=== PATIENT | male | born 1960 | race Caucasian/White ===

== ENCOUNTER 2019-03-31 07:58 | Inpatient (IN) | payer MEDICARE ==
[2019-03-17 12:59] LABS: BASOPHILS # (AUTO) 0.1 (0.0-0.1); EOSINOPHILS # (AUTO) 0.2 (0.0-0.4); EOSINOPHILS % 3.3 % (0.0-6.0); HEMATOCRIT 37.9 % (38.2-49.6); HEMOGLOBIN 12.9 g/dL (14.0-18.0); LYMPHOCYTES # (AUTO) 1.4 (1.0-3.2); LYMPHOCYTES % 20.1 % (18.0-39.1); MEAN CORPUSCULAR HEMOGLOBIN 31.1 pg (28-32); MEAN CORPUSCULAR VOLUME 91.3 fL (81-99); MONOCYTES # (AUTO) 0.7 (0.2-0.8); MONOCYTES % 9.7 % (4.4-11.3); NEUTROPHILS # (AUTO) 4.4 (2.1-6.9); NEUTROPHILS % 65.5 % (38.7-80.0); PLATELET COUNT 157 x10e3/uL (140-360); RED BLOOD COUNT 4.15 x10e6/uL (4.3-5.7)
[2019-03-17 13:16] LABS: ANION GAP 12.8 mmol/L (8-16); BLOOD UREA NITROGEN 10 mg/dL (7-26); BUN/CREATININE RATIO 12 (6-25); CALCIUM 8.7 mg/dL (8.4-10.2); CARBON DIOXIDE 25 mmol/L (22-29); CHLORIDE 103 mmol/L (98-107); CREATININE, SERUM 0.85 mg/dL (0.72-1.25); EST GLOMERULAR FILTRATION RATE > 60 ML/MIN (60-); GLUCOSE 154 mg/dL (74-118); POTASSIUM 3.8 mmol/L (3.5-5.1); SODIUM 137 mmol/L (136-145)
--- NOTE | 2019-03-17 13:50 | Diagnostic Imaging Report ---
EXAMINATION: CHEST 2 VIEWS INDICATION: Pre-operative COMPARISON: None FINDINGS: LINES/TUBES:None LUNGS:The lungs are well-inflated. No focal consolidation or pulmonary edema. PLEURA:No pleural effusion or pneumothorax. MEDIASTINUM:The cardiomediastinal silhouette appears normal in size and shape. BONES/SOFT TISSUES:No acute osseous injury. ABDOMEN:No free air under the diaphragm. IMPRESSION: No focal pneumonia or pulmonary edema. Signed by: Laila Petty MD on 03/17/2019 1:46 PM
[~2019-03-31] VITALS: Ht 180.3 cm; Wt 160.6 kg
[~2019-03-31 07:58] MED LIST: AMLODIPINE BESY10 MG PO; BACTRIM DS TAB1 EACH PO; BENAZEPRIL-HCT1 EAC3 PO; BENICAR20 MG PO; CEPHALEXIN500 MG PO; ELIQUIS5 MG PO; FIORICET; FUROSEMIDE40 MG PO; GABAPENTIN100 MG PO; ISOSORBIDE MONO20 MG PO; KEFLEX500 MG PO; LABETALOL HCL300 MG; LINZESS; METFORMIN HCL500 MG PO; METHOCARBAMOL750 MG PO; MS CONTIN15 MG PO; OMEPRAZOLE40 MG PO; RANEXA500 MG PO; SAVAYSA PO; SULFAMETHOXAZO1 EAC1 PO; TIZANIDINE HCL4 M1 PO; ULTRAM50 MG PO; Z.0.ALLOPURINOL300 M PO; Z.0.ATENOLOL100 MG PO; Z.0.CATAPRES0.3 MG PO; Z.0.COLCRYS0.6 MG PO; Z.0.DIOVAN160 MG PO; Z.0.LASIX40 MG PO; Z.5.AMLODIPINE-BEN1 PO
--- OUTSIDE RECORDS SUMMARY | 2019-03-31 08:10 | XMS REPORT ---
Author Author [facility] Address Unknown Phone Unavailable Care Team Providers Care Quirk Sander Name Role Phone Susie AGUAYO Unavailable Unavailable Problems This patient has no known problems. Allergies, Adverse Reactions, Alerts This patient has no known allergies or adverse reactions. Medications This patient has no known medications. Results Test Description Test Time Test Comments Text Results Atomic Results Result Comments CHEST 2 VIEWS 2019-03-17 13:45:00 [facility] [address] [address] Patient Name: DARIA RICHARDS MR #: [id number] : 1960 Age/Sex: 58/M Req #: [id number] Adm Physician: Ordered by: LILLI AGUAYO MD Report #: [id number] Location: OR Room/Bed: Procedure: [id number] DX/CHEST 2 VIEWS Exam Date: Exam Time: REPORT STATUS: Signed EXAMINATION: CHEST 2 VIEWS INDICATION: Pre-operative COMPARISON: None FINDINGS: LINES/TUBES:None LUNGS:The lungs are well- inflated. No focal consolidation or pulmonary edema. PLEURA:No pleural effusion or pneumothorax. MEDIASTINUM:The cardiomediastinal silhouette appears normal in size and shape. BONES/SOFT TISSUES:No acute osseous injury. ABDOMEN:No free air under the diaphragm. IMPRESSION: No focal pneumonia or pulmonary edema. Signed by: Nico Lynn MD on 03/17/2019 1:46 PM Dictated By: NICO LYNN MD 134 Transcribed By: TAMIE on 03/17/191345 COPY TO: LILLI AGUAYO MD
[2019-03-31] MEDS ORDERED: CEFAZOLIN SOD 1 GM/NS 50ML 100 ML IV ONE (08:36)
[2019-03-31] MEDS ORDERED: MORPHINE SULFATE 2 MG/ML SYR 1ML IV PRN (11:30)
[2019-03-31] MEDS ORDERED: ONDANSETRON HCL INJ 2MG/ML 2ML 2 MG/ML VIAL IV PRN (11:30)
[2019-03-31] MEDS ORDERED: SCOPOLAMINE 1.5 MG PATCH TOP SCH (11:30)
[2019-03-31] MEDS ORDERED: BUPIVACAINE 0.25% 30ML SDV INJ ONE (11:50)
[2019-03-31] MEDS ORDERED: ACETAMINOPHEN 1000 MG/100 ML 100 ML IV ONE (12:28)
[2019-03-31] MEDS ORDERED: SUGAMMADEX SODIUM 200 MG/2 ML VIAL IV ONE (12:29)
[2019-03-31] MEDS ORDERED: METOCLOPRAMIDE HCL 10 MG/2ML VIAL ONE (13:28)
[2019-03-31] MEDS ORDERED: ONDANSETRON HCL INJ 2MG/ML 2ML 2 MG/ML VIAL ONE ×2 (13:28→17:42)
--- NOTE | 2019-03-31 13:38 | Operative Report ---
DATE OF PROCEDURE: 03/31/2019 SURGEON: Myles Alvarez MD PREOPERATIVE DIAGNOSES: 1. Morbid obesity, BMI of 58. 2. Type 2 diabetes mellitus. 3. Hypertension. 4. Atrial fibrillation, on Eliquis. 5. Hiatal hernia. POSTOPERATIVE DIAGNOSES: 1. Morbid obesity, BMI of 58. 2. Type 2 diabetes mellitus. 3. Hypertension. 4. Atrial fibrillation, on Eliquis. 5. Hiatal hernia. PREOPERATIVE INDICATION: 1. Treat disease, prevent complications related to comorbid conditions of obesity. 2. Prevent complications related to hiatal hernia. PROCEDURES: 1. Laparoscopic vertical sleeve gastrectomy. 2. Laparoscopic hiatal hernia repair. ANESTHESIA: General. CAREER AND GUIDANCE COUNSELOR: Davidson Elias rn medical surgical (needed due to complexity of case). FLUIDS: 500 mL of crystalloid. ESTIMATED BLOOD LOSS: 20 mL. DRAINS: None. COMPLICATIONS: None. SPECIMENS: Partial stomach. GRAFTS: None. FINDINGS: 1. Hiatal hernia. 2. Negative intraoperative EGD leak test. PROCEDURE IN DETAIL: The patient was brought to the operating room and was intubated under general endotracheal anesthesia. He was sterilely prepped and draped in the usual fashion. A preprocedure pause was performed identifying the patient, use of perioperative antibiotics, intended procedure, and staff surgeon. Access was gained via a 5 mm left subcostal incision using a Veress needle. Abdomen was insufflated. Four additional trocars were placed in the standard positions. A liver retractor was used to expose the stomach. The gastrohepatic ligament was divided with [place] LigaSure device and the hiatal hernia was exposed by dissecting out the right and left terry of the diaphragm. Hernia was reduced, it was repaired with 2-0 Surgidac suture in an interrupted fashion. Next, the greater curvature of the stomach was mobilized via the [place] LigaSure device from 4 cm proximal to the pyloric valve to the left terry of the diaphragm. I then inserted an adult-sized endoscope along the lesser curve of the stomach. The greater curvature of stomach was resected with multiple firings of Endo-DOMINGO 60 mm purple load stapling device, which was reinforced with SeamGuard. We conducted intraoperative EGD leak test, no leaks were identified. The specimen was removed through the right periumbilical port site. The port site was closed with 0 Vicryl suture using a Tyrese Ed technique. We then verified hemostasis, removed the liver retractor and desufflated the abdomen. The trocars were removed. Incision sites were closed with 4-0 Monocryl suture in a subcuticular fashion. Dermabond dressings were applied. A 0.25% bupivacaine was used both at the preperitoneal incision sites. The patient tolerated the procedure well. Type of wound was type 2, clean, contaminated. All surgical sponge and instrument counts were correct. MD PALOMO Gonzales/THAD /[id number]
[2019-03-31] MEDS ORDERED: FENTANYL CITRATE/PF 100MCG/2 ML INJ ONE ×2 (13:42→17:48)
--- NOTE | 2019-03-31 13:55 | NUR ---
RECEIVED REPORT FROM TRAM IN PACU AWAITING FOR PT TO ARRIVE TO FLOOR
--- NOTE | 2019-03-31 14:01 | NUR ---
RECEIVED PT TO FLOOR AA0X2/3 DROWSY FROM ANESTHESIA. REPORTING SEVERE PAIN 10/10 PRN MORPHINE WILL BE GIVEN V.T STABLE PT ON 2L TOLERATING WELL PT HAS HX OF SLEEP APNEA. WILL BE BRINGING MACHINE TO HOSPITAL RIGHT HAND IV ACCESS PATENT WITH LR RUNNING 5 TROCHAR SITES WITH DERMA MEDEROS ,CLEAN AND DRY WILL CONTINUE TO MONITOR PT CLOSELY SIDE RAILSX2, BED WHEELS LOCKED, CALL LIGHT IS WITHIN EASY REACH INSTRUCTED TO CALL FOR ASSISTANCE IF NEEDED
[2019-03-31 14:19] VITALS: BP 120/79
[2019-03-31 14:23] VITALS: BP 120/79
[2019-03-31 14:24] VITALS: BP 120/79
[2019-03-31] MEDS: LACTATED RINGER'S 1,000 ML IV SCH ×2 (14:44→19:30)
[2019-03-31] MEDS: HYDROMORPHONE 1MG/1ML INJ IV PRN ×3 (16:13→23:35)
[2019-03-31] MEDS: ONDANSETRON HCL INJ 2MG/ML 2ML 2 MG/ML VIAL IV PRN ×2 (16:13→20:20)
--- NOTE | 2019-03-31 17:29 | NUR ---
PT REFUSIONG SEDS AT THIS TIME INFORMED PT ABOUT THE IMPORTANCE OF DVT PREVENTION PT REFUSES THEM ON AFTER TEACHING
[2019-03-31] MEDS ORDERED: SEVOFLURANE INHAL SOLN 250 ML PEN BTL ONE (17:42)
[2019-03-31] MEDS ORDERED: ACETAMINOPHEN 1000 MG/100 ML IV ONE (17:42)
[2019-03-31] MEDS ORDERED: PROPOFOL IV EMULSION 10 MG/ML 20 ML VIAL ONE (17:42)
[2019-03-31] MEDS ORDERED: LIDOCAINE HCL 2% LOCAL INJ 5 ML SDV VIAL INJ ONE (17:42)
[2019-03-31] MEDS ORDERED: DEXAMETHASONE SOD PHOS INJ 4 MG/ML VIAL ONE (17:42)
[2019-03-31] MEDS ORDERED: DEXTROSE 50% SYRINGE 50 ML IV PRN (17:45)
[2019-03-31] MEDS ORDERED: MIDAZOLAM HCL 2 MG/2 ML VIAL ONE (17:48)
--- NOTE | 2019-03-31 18:44 | NUR ---
PT VOIDED 3 TIMES AFTER SX INTO URINAL
--- NOTE | 2019-03-31 19:30 | Consultation ---
DATE OF CONSULTATION: REASON FOR CONSULTATION: "I had weight loss surgery today." HISTORY OF PRESENT ILLNESS: This is a 58-year-old white man, who was admitted to [facility] today with diagnosis of extreme obesity, BMI 49, that was complicating his underlying hypertension, diastolic heart failure, and sleep apnea. Today, the patient underwent successful laparoscopic sleeve gastrectomy that was performed by Dr. Myles Alvarez. He also underwent laparoscopic hiatal hernia repair. During this surgical procedure, the patient states he is having considerable amount of abdominal pain, but did respond to intravenous hydromorphone. The patient states that a year ago he underwent left heart catheterization and no percutaneous coronary intervention was warranted. REVIEW OF SYSTEMS: GENERAL: Weight is stable. No fever or chills. HEENT: No headaches. No visual changes. CARDIOVASCULAR: No chest pain. RESPIRATORY: No cough. He does use a CPAP machine for sleep apnea. He also has diastolic heart failure. GI: No nausea or vomiting. He does complain abdominal pain. : No UTI symptoms. Cowan catheter has been removed. NEUROMUSCULAR: No limb weakness or numbness. PAST MEDICAL HISTORY: 1. Hyperuricemia (history of gout). 2. Hypertensive heart disease. 3. Chronic diastolic congestive heart failure. 4. Extreme obesity, BMI 49. 5. Chronic atrial fibrillation. 6. Type 2 diabetes mellitus. 7. Chronic back pain secondary to lumbar disk disease. 8. GERD. SURGICAL HISTORY: 1. Left heart catheterization in 2018, which did not require percutaneous coronary intervention according to the patient. 2. Right axilla abscess incision and drainage. 3. Left carpal tunnel surgery. 4. Laparoscopic sleeve gastrectomy with hiatal hernia repair today. ALLERGIES: CODEINE. FAMILY HISTORY: Multiple family members with hypertension, type 2 diabetes mellitus. SOCIAL HISTORY: This man is . He lives with his . He is retired. No history of tobacco or alcohol use. MEDICATIONS: 1. Allopurinol 300 mg daily. 2. Amlodipine 10 mg daily. 3. Eliquis 5 mg b.i.d. 4. Clonidine 0.3 mg b.i.d. 5. Colchicine 0.6 mg once daily. 6. Furosemide 40 mg b.i.d. 7. Gabapentin 100 mg once daily. 8. Isosorbide mononitrate 30 mg daily. 9. Labetalol 300 mg once daily. 10. Metformin 500 mg b.i.d. 11. Morphine sulfate extended release 15 mg b.i.d. 12. Olmesartan 40 mg daily. 13. Omeprazole 40 mg daily. 14. Tizanidine 4 mg once daily as needed for back spasms. PHYSICAL EXAMINATION: GENERAL: He is somnolent, but arousable. He is currently wearing a CPAP mask. His is at bedside. VITAL SIGNS: Height 5 feet 11 inches, weighs 350 pounds, BMI 49. Blood pressure is 120/80, pulse is 54, respiratory rate 16, oxygen saturation is 94% on 2 L of oxygen, and temperature 96.4. INTEGUMENT: Skin is warm and dry. No pallor, jaundice, or diaphoresis. HEENT: Anicteric sclerae with moist mucous membranes. NECK: Supple. No evidence of jugular venous distention. CARDIOVASCULAR: Distant heart sounds. Regular rate with irregular rhythm. LUNGS: No rales, no rhonchi, no wheezes. ABDOMEN: Obese. He has a large pendulous abdominal pannus. Laparoscopic incisions are clean, dry, and intact. EXTREMITIES: The patient has 1 to 2+ edema in the bilateral lower legs. NEUROLOGIC: Intact. DIAGNOSES: 1. Status post laparoscopic sleeve gastrectomy with hiatal hernia repair. 2. Extreme obesity, BMI 49, complicated underlying hypertension, type 2 diabetes mellitus with sleep apnea. 3. Hypertensive heart disease. 4. Chronic diastolic congestive heart failure. 5. Type 2 diabetes mellitus. PLAN: 1. Blood pressure monitoring control. 2. Blood glucose monitoring control. 3. Restart oral apixaban in the form of Eliquis tomorrow since the patient has history of atrial fibrillation. 4. Mobilize the patient. 5. Encourage incentive spirometer usage to help prevent atelectasis. 6. We will resume the patient's home medications. I spent 40 minutes in care of the patient. I would also like to thank Dr. Hollis for involving me in the care of this patient. MD NORBERTO Zavala/THAD /[id number] MTDD
[2019-03-31 19:59] VITALS: BP 136/76
[2019-03-31 20:15] VITALS: BP 136/76
[2019-03-31] MEDS: INSULIN LISPRO 100 UNIT/1 ML 3ML VIAL SQ SCH (21:10)
[2019-03-31] MEDS: ENOXAPARIN SOD INJ 40 MG/0.4 ML SYR SC SCH (21:27)
--- NOTE | 2019-03-31 21:45 | NUR ---
Assessment done.no resp.distress. 5 trochar sites to abdomen dry.voided in urinal.uses spirometer.encouraged to ambulates .pt stated that "feels dizzy" .so pt refused.iv fluid infusing to right hand.using cpap.bed locked and in lowest position.phone and call light within reach.instructed to call for assistance as needed.
[2019-03-31 23:58] VITALS: BP 156/77
[2019-04-01] MEDS: ONDANSETRON HCL INJ 2MG/ML 2ML 2 MG/ML VIAL IV PRN ×2 (00:10→06:18)
--- NOTE | 2019-04-01 01:02 | NUR ---
Ambulates in the room.voided.no passes gas .
[2019-04-01] MEDS: LACTATED RINGER'S 1,000 ML IV SCH (03:48)
[2019-04-01 04:00] VITALS: BP 150/90
[2019-04-01 05:40] LABS: ALANINE AMINOTRANSFERASE 109 IU/L (0-55); ALBUMIN 3.8 g/dL (3.5-5.0); ALKALINE PHOSPHATASE 75 IU/L (40-150); ANION GAP 13.8 mmol/L (8-16); BLOOD UREA NITROGEN 17 mg/dL (7-26); BUN/CREATININE RATIO 16 (6-25); CALCIUM 9.4 mg/dL (8.4-10.2); CARBON DIOXIDE 25 mmol/L (22-29); CHLORIDE 102 mmol/L (98-107); CREATININE, SERUM 1.06 mg/dL (0.72-1.25); EST GLOMERULAR FILTRATION RATE > 60 ML/MIN (60-); GLUCOSE 184 mg/dL (74-118); MAGNESIUM 1.8 MG/DL (1.3-2.1); PHOSPHORUS 2.6 MG/DL (2.3-4.7); POTASSIUM 3.8 mmol/L (3.5-5.1); SODIUM 137 mmol/L (136-145)
--- NOTE | 2019-04-01 06:00 | NUR ---
Ambulates in the [address].back to bed safely.stable condition.
[2019-04-01] MEDS: HYDROMORPHONE 1MG/1ML INJ IV PRN (06:20)
[2019-04-01 06:40] LABS: BASOPHILS % 0.1 % (0.0-1.0); HEMATOCRIT 39.3 % (38.2-49.6); HEMOGLOBIN 13.2 g/dL (14.0-18.0); LYMPHOCYTES # (AUTO) 0.8 (1.0-3.2); LYMPHOCYTES % 7.8 % (18.0-39.1); MEAN CORPUSCULAR HEMOGLOBIN 30.5 pg (28-32); MEAN CORPUSCULAR HGB CONC 33.6 g/dL (31-35); MEAN CORPUSCULAR VOLUME 90.8 fL (81-99); MONOCYTES # (AUTO) 0.8 (0.2-0.8); MONOCYTES % 7.2 % (4.4-11.3); NEUTROPHILS # (AUTO) 8.8 (2.1-6.9); NEUTROPHILS % 84.4 % (38.7-80.0); PLATELET COUNT 198 x10e3/uL (140-360); RED BLOOD COUNT 4.33 x10e6/uL (4.3-5.7); RED CELL DISTRIBUTION WIDTH 14.2 % (11.7-14.4)
--- NOTE | 2019-04-01 07:00 | NUR ---
Bed side shift report given to the oncoming Rn.stable condition.
[2019-04-01] MEDS: INSULIN LISPRO 100 UNIT/1 ML 3ML VIAL SQ SCH ×2 (07:30→11:30)
[2019-04-01] MEDS ORDERED: HYDROCODONE/APAP 7.5MG-325MG 1 EA TAB PO PRN (07:30)
[2019-04-01 07:44] VITALS: BP 193/93
[2019-04-01 08:01] VITALS: BP 193/93
[2019-04-01] MEDS: ENOXAPARIN SOD INJ 40 MG/0.4 ML SYR SC SCH (08:02)
--- NOTE | 2019-04-01 08:05 | NUR ---
Progress note: S: No major complaints O: AF, VSS Gen- no distress Abd- soft, incisions c/d/i A/P: POD 1, s/p lap sleeve gastrectomy with hiatal hernia repair -Clears, ambulate, IS, OOB to chair -DC Home -Diet instructions given
--- NOTE | 2019-04-01 08:12 | Discharge Summary ---
ADMITTING DIAGNOSES: 1. Extreme obesity, BMI 49, complicating underlying hypertension, sleep apnea, and heart failure. 2. Hypertensive heart disease. 3. Chronic diastolic congestive heart failure. 4. Type 2 diabetes mellitus. 5. Obstructive sleep apnea. DISCHARGE DIAGNOSES: 1. Status post laparoscopic sleeve gastrectomy with hiatal hernia repair. 2. Extreme obesity, BMI 49, complicating underlying hypertension, diastolic heart failure, and sleep apnea. 3. Chronic diastolic congestive heart failure. 4. Hypertensive heart disease. 5. Obstructive sleep apnea. 6. Type 2 diabetes mellitus. 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 During this hospitalization, he underwent successful laparoscopic vertical sleeve gastrectomy with hiatal hernia repair. The surgery was performed by Dr. Myles Alvarez. His hospitalization was unremarkable. His postoperative blood work was remained within normal limits. On discharge, the patient was tolerating bariatric clear liquid diet. CONDITION ON DISCHARGE: Stable. DISCHARGE MEDICATIONS: 1. Tramadol 50 mg one every 4 hours p.r.n. breakthrough pain, 30 prescribed, no refills. 2. Ondansetron 4 mg one every 6 hours p.r.n. nausea, vomiting, 20 prescribed, no refills. 3. Allopurinol 300 mg daily. 4. Amlodipine 10 mg daily. 5. Eliquis 5 mg b.i.d. (the patient will start this on Sunday, April 02, 2019). 6. Clonidine 0.3 mg b.i.d. 7. Colchicine 0.6 mg daily. 8. Furosemide 40 mg b.i.d. 9. Gabapentin 100 mg once daily as needed for neuropathic pain. 10. Isosorbide mononitrate 30 mg daily. 11. Labetalol 300 mg b.i.d. 12. Metformin 500 mg b.i.d. 13. Morphine sulfate extended release 15 mg b.i.d. 14. Olmesartan 40 mg daily. 15. Omeprazole 40 mg daily. 16. Tizanidine 4 mg daily as needed for back spasms. FOLLOWUP INSTRUCTIONS: The patient instructed to follow up with Dr. Myles Alvarez within 1 week and with his primary care physician namely Dr. Jerome Clay in 2 weeks. MD NORBERTO Zavala/THAD /[id number] cc: MD Jerome Gonzales, MTDD
[2019-04-01] MEDS ORDERED: CLONIDINE HCL 0.3 MG TAB PO SCH (09:00)
[2019-04-01] MEDS ORDERED: ISOSORBIDE MONONITRATE 20 MG TAB PO SCH (09:00)
[2019-04-01] MEDS ORDERED: AMLODIPINE BESYLATE 10 MG TAB PO SCH (09:00)
[2019-04-01] MEDS ORDERED: TIZANIDINE HCL 4 MG TAB PO SCH ×2 (09:00→12:00)
[2019-04-01] MEDS ORDERED: PANTOPRAZOLE SOD 40 MG TABEC PO SCH (09:00)
[2019-04-01] MEDS ORDERED: OLMESARTAN 20 MG TAB PO SCH ×2 (09:00→21:00)
[2019-04-01 09:30] VITALS: BP 133/93
[2019-04-01] MEDS ORDERED: ULTRAM50 MG PO (11:28)
[2019-04-01] MEDS ORDERED: ZOFRAN4 MG PO (11:28)
--- NOTE | 2019-04-01 11:34 | NUR ---
Nutrition Screen Note RD Recommendation for Physician: - ADAT to full liquids per MD Plan of Care: RD following, monitoring for tolerance and adequacy Nutrition reason for involvement: MD Consult- post op diet education Primary Diagnose(s): gastric sleeve PMH: morbid obesity, CHF, HTN, DM2 Ht: 71 in Wt: 354 lb BMI: 49.4 kg/m2 IBW: [address] Assessment: (04/01) 58 YOM admitted for gastric sleeve surgery, seen today per MD consult for diet education. Pt receptive to diet education at time of visit. Pt reports being followed by RD prior to surgery, familiar with diet progression, and has protein supplements and MVI at home. All questions and concerns addressed at time of visit. Chart reviewed. Labs and meds reviewed. Current Diet: bariatric CL diet Malnutrition Evaluation (04/01/19) The patient does not meet criteria for a specified degree of malnutrition at this time. Will re-evaluate at follow-up as appropriate. Diet Education Needs Assessment: Diet education indicated, pt receptive Learner(s): pt Barriers: none Cultural/Language Modifications: none Readiness: ready Method: handouts, discussion Topics: post op gastric bypass diet progression, supplementation Understanding/Compliance: good Diet tolerance: tolerating CL diet Nutrition Care Level: Low Signed: Clover Chang RD, LD, [facility]
[2019-04-01 12:18] VITALS: BP 135/96
--- NOTE | 2019-04-01 12:42 | NUR ---
pt tolerated diet for breakfast and lunch discharge instructions and prescriptions given iv dc pressure dressing applied and taped pt is now off unit to home
== END 2019-04-01 12:35 | disposition home or self-care (01) | DRG 620 ==
LOC: OR 07:58 → PACU V 13:28 → OBSVTOIN 13:28 → MED/SURG 14:03
PROVIDERS: ADMIT Internal Medicine; ATTEND Internal Medicine
PROC: 0BQT4ZZ Repair Diaphragm, Percutaneous Endoscopic Approach (ICD-10-PCS; principal; 2019-03-31 10:00)
PROC: 0DB64Z3 Excision of Stomach, Percutaneous Endoscopic Approach, Vertical (ICD-10-PCS; 2019-03-31 10:00)
DX: E66.01 Morbid (severe) obesity due to excess calories (principal); I50.32 Chronic diastolic (congestive) heart failure; I11.0 Hypertensive heart disease with heart failure; G47.33 Obstructive sleep apnea (adult) (pediatric); E11.9 Type 2 diabetes mellitus without complications; K44.9 Diaphragmatic hernia without obstruction or gangrene; I48.91 Unspecified atrial fibrillation; Z79.01 Long term (current) use of anticoagulants; Z68.43 Body mass index [BMI] 50.0-59.9, adult; M51.36 Other intervertebral disc degeneration, lumbar region; K21.9 Gastro-esophageal reflux disease without esophagitis
CPT/HCPCS: 36415; 43235; 71046; 80048; 80053; 82948; 83735; 84100; 85025; 88307; 93005; J0690; J1100; J1170; J1650; J2001; J2250; J2270; J2405; J2765; J3010; J7121

== ENCOUNTER → 2020-03-02 | Outpatient (CLI) | payer MEDICARE ==
[~2020-03-02] MED LIST changes: +ALLOPURINOL300 MG PO; +AMIODARONE HCL200 MG PO; +ATENOLOL50 MG PO; +BENAZEPRIL HCL10 MG PO; +GABAPENTIN800 MG PO; +MOVE IT ALONG100 MG PO; +TIZANIDINE HCL4 MG PO; +ZOFRAN4 MG PO
== END ==
LOC: RAD 10:57
PROVIDERS: ATTEND Anesthesiology
DX: M17.12 Unilateral primary osteoarthritis, left knee (principal)

== ENCOUNTER → 2020-04-06 | Day surgery (SDC) | payer MEDICARE ==
[2020-04-01 10:17] LABS: BASOPHILS # (AUTO) 0.1 (0.0-0.1); EOSINOPHILS # (AUTO) 0.2 (0.0-0.4); HEMATOCRIT 40.1 % (38.2-49.6); HEMOGLOBIN 13.5 g/dL (14.0-18.0); LYMPHOCYTES # (AUTO) 1.7 (1.0-3.2); LYMPHOCYTES % 23.9 % (18.0-39.1); MEAN CORPUSCULAR HGB CONC 33.7 g/dL (31-35); MONOCYTES # (AUTO) 0.6 (0.2-0.8); MONOCYTES % 8.5 % (4.4-11.3); NEUTROPHILS # (AUTO) 4.5 (2.1-6.9); NEUTROPHILS % 62.8 % (38.7-80.0); PLATELET COUNT 175 x10e3/uL (140-360); RED BLOOD COUNT 4.22 x10e6/uL (4.3-5.7); RED CELL DISTRIBUTION WIDTH 14.5 % (11.7-14.4)
[2020-04-01 11:01] LABS: ALANINE AMINOTRANSFERASE 22 IU/L (0-55); ALBUMIN 4.1 g/dL (3.5-5.0); ALBUMIN/GLOBULIN RATIO 1.2 (0.8-2.0); ALKALINE PHOSPHATASE 76 IU/L (40-150); ANION GAP 13.1 mmol/L (8-16); BLOOD UREA NITROGEN 17 mg/dL (7-26); BUN/CREATININE RATIO 14 (6-25); CALCIUM 9.7 mg/dL (8.4-10.2); CARBON DIOXIDE 30 mmol/L (22-29); CHLORIDE 101 mmol/L (98-107); EST GLOMERULAR FILTRATION RATE > 60 ML/MIN (60-); GLUCOSE 136 mg/dL (74-118); POTASSIUM 3.1 mmol/L (3.5-5.1); SODIUM 141 mmol/L (136-145)
--- NOTE | 2020-04-02 16:30 | NUR ---
Pt contacted by phone for interview of scheduled procedure. Review of medical history and current medications. Procedural consent on day of arrival to be completed, pre-op orders, and twice bathing education completed. All questions clarified and or answered where appropriate. pt verbalizes understanding to include day of procedure expectations and practice social distancing. Pt aware to be using provided/ personal mask for COVID-19 mitigation. Pt to bring medication list day of . - [facility]
[~2020-04-06] VITALS: Ht 180.3 cm; Wt 144.2 kg
[~2020-04-06] MED LIST changes: +ALPRAZOLAM 0.5 MG TAB ONE; +DIPHENHYDRAMINE HCL 25 MG CAP ONE; +FENTANYL CITRATE/PF 100MCG/2 ML INJ ONE; +HEPARIN SOD/SOD CHLORIDE 2,000 ML ONE; +IOPAMIDOL 370 MG/ML 200 ML INFUS..BTL INJ ONE; +LIDOCAINE HCL 2% LOCAL 20 ML VIAL ONE; +MIDAZOLAM HCL 2 MG/2 ML VIAL ONE; +SODIUM CHLORIDE 0.9% 1000ML 1,000 ML ONE; +VERAPAMIL HCL 2.5 MG/ML 2 ML VIAL ONE
[2020-04-06 12:48] VITALS: BP 119/77
[2020-04-06 13:51] VITALS: BP 130/70
--- NOTE | 2020-04-06 13:51 | NUR ---
1351p Report received from [facility] Alert oriented and appropriate, PERRLA, respirations even and unlabored to room air. Pulses x4 extremities equal and palpable . Cap fill brisk < 3 sec. + neurovascular function of right wrist/hand w/ TR Band present. No s/s of swelling or discolor at site. VS trend reviewed and medications given.TR band air release scheduled 1430pm. Skin warm and dry integrity appears intact in general. IV left hand presents healthy w/o s/s of infiltration or complaint. Abdomen soft and supple. pt offered toileting, denies need to urinate or defecate. Resting with HOB elevated aprox 30o. Personal affects with patient. Pt verbalizes understanding of POC. Educated neurological surgeon light use. bed low and locked, side rails up x2 and call light at side. pt using personal mask for COVID-19 mitigation. transfer of care -cgf
[2020-04-06 13:57] VITALS: BP 131/58
[2020-04-06 14:00] VITALS: BP 140/70
--- NOTE | 2020-04-06 14:30 | NUR ---
1430p RADIAL Compression removal: Initial Cuff volume 13 cc 1430pm -3 cc Removed No hematoma/bleeding noted with normal neurovascular function. 1445p -5cc Removed No hematoma/ bleeding noted with normal neurovascular function. 1500p-5 cc Removed No hematoma/bleeding noted with normal neurovascular function. Air removal completed. Stasis achieved sterile 2x2,Tegaderm, Coban dressing No hematoma, bleeding noted with normal neurovascular function. Pt instructed on POC. Ds/Rn
[2020-04-06 14:45] VITALS: BP 124/77
[2020-04-06 15:00] VITALS: BP 124/77
--- NOTE | 2020-04-06 15:00 | NUR ---
1500pm RT-TRBAND Pt meets discharge criteria. VS wnl, alert and oriented. Pt and Family Understands discharge instruction. Overall general assess w/o gross outliers. Skin warm, dry, and intact. Right radial dressing soft w/o s/s of hematoma. + neurovascular function of right hand present. IV removed and appears distal tip is intact, Miky staff antisubmarine officer member verifying. Pt maintains mask on for COVID 19 precautions being taken by wheel chair to awaiting car. Transfers w/o gross distress with discharge paperwork in hand.-ds/rn
--- NOTE | 2020-04-06 17:04 | Operative Report ---
DATE OF PROCEDURE: 04/06/2020 SURGEON: Josh Linn MD INDICATIONS: Coronary artery disease and abnormal stress test. PROCEDURES PERFORMED: 1. Ultrasound-guided access in the right radial artery with sheath placement. 2. Left heart catheterization, selective coronary angiography. 3. Conscious sedation, 35 minutes. 4. Deployment of right wrist TR band. COMPLICATIONS: None. RECOMMENDATIONS: Medical therapy. DESCRIPTION OF PROCEDURE: Access was obtained in the right radial artery using ultrasound guidance. A 5-Vietnamese sheath was placed. Coronary angiography demonstrated diffuse aneurysmal coronary artery disease, 4 to 8 mm coronary arteries diffusely, 30% to 50% diffuse plaques stenosis were noted. AMY 1/2 flow in all coronary vessels. No intervention deemed necessary. Right wrist TR band applied. The patient discharged home the same day. Josh Linn MD KSB/MODL /[id number]
== END | disposition home or self-care (01) ==
LOC: CATH LAB 11:54
PROVIDERS: ATTEND Internal Medicine Interventional Cardiology
DX: I25.118 Atherosclerotic heart disease of native coronary artery with other forms of angina pectoris (principal); I48.19 Other persistent atrial fibrillation; R94.39 Abnormal result of other cardiovascular function study; I10 Essential (primary) hypertension; E66.01 Morbid (severe) obesity due to excess calories; I89.0 Lymphedema, not elsewhere classified; Z88.6 Allergy status to analgesic agent; Z01.812 Encounter for preprocedural laboratory examination; Z20.828 Contact with and (suspected) exposure to other viral communicable diseases; Z79.82 Long term (current) use of aspirin; Z79.84 Long term (current) use of oral hypoglycemic drugs; Z68.41 Body mass index [BMI] 40.0-44.9, adult; Z82.49 Family history of ischemic heart disease and other diseases of the circulatory system; Z83.3 Family history of diabetes mellitus
CPT/HCPCS: 36415; 76937; 80053; 85025; 93454; C1769; C1887; J2001; J2250; J3010; J7030; Q9967; U0002; 99152

== ENCOUNTER → 2021-09-20 | Day surgery (SDC) | payer MEDICARE ==
[2021-09-15 09:09] LABS: BASOPHILS # (AUTO) 0.1 (0.0-0.1); BASOPHILS % 0.8 % (0.0-1.0); EOSINOPHILS # (AUTO) 0.1 (0.0-0.4); HEMATOCRIT 39.3 % (38.2-49.6); HEMOGLOBIN 12.6 g/dL (14.0-18.0); LYMPHOCYTES # (AUTO) 1.3 (1.0-3.2); MEAN CORPUSCULAR HEMOGLOBIN 31.6 pg (28-32); MEAN CORPUSCULAR HGB CONC 32.1 g/dL (31-35); MEAN CORPUSCULAR VOLUME 98.5 fL (81-99); MONOCYTES # (AUTO) 0.5 (0.2-0.8); NEUTROPHILS # (AUTO) 4.5 (2.1-6.9); NEUTROPHILS % 68.9 % (38.7-80.0); PLATELET COUNT 166 x10e3/uL (140-360); RED BLOOD COUNT 3.99 x10e6/uL (4.3-5.7); RED CELL DISTRIBUTION WIDTH 14.2 % (11.7-14.4)
[2021-09-15 09:32] LABS: ALBUMIN 3.7 g/dL (3.5-5.0); ALBUMIN/GLOBULIN RATIO 1.2 (0.8-2.0); ANION GAP 12.5 mmol/L (8-16); CREATININE, SERUM 1.21 mg/dL (0.72-1.25); POTASSIUM 3.5 mmol/L (3.5-5.1)
[~2021-09-20] VITALS: Ht 180.3 cm; Wt 141.1 kg
[2021-09-20] VITALS (10 sets, daily range): BP systolic 117–146; BP diastolic 82–97
[~2021-09-20] MED LIST changes: -ALPRAZOLAM 0.5 MG TAB ONE; -DIPHENHYDRAMINE HCL 25 MG CAP ONE; +IOPAMIDOL 370 MG/ML 100 ML INFUS..BTL INJ ONE; -IOPAMIDOL 370 MG/ML 200 ML INFUS..BTL INJ ONE; -LIDOCAINE HCL 2% LOCAL 20 ML VIAL ONE; +MULTI-VITAMIN1 EACH PO; -SODIUM CHLORIDE 0.9% 1000ML 1,000 ML ONE; +TAMIFLU75 MG PO
[2021-09-20] MEDS: DIPHENHYDRAMINE HCL 25 MG CAP ONE (13:42)
[2021-09-20] MEDS: ALPRAZOLAM 0.5 MG TAB ONE (13:42)
== END | disposition home or self-care (01) ==
LOC: CATH LAB 12:19
PROVIDERS: ATTEND Internal Medicine Interventional Cardiology
DX: I25.118 Atherosclerotic heart disease of native coronary artery with other forms of angina pectoris (principal); I11.0 Hypertensive heart disease with heart failure; I50.9 Heart failure, unspecified; I48.19 Other persistent atrial fibrillation; Z79.01 Long term (current) use of anticoagulants; E78.5 Hyperlipidemia, unspecified; I73.9 Peripheral vascular disease, unspecified; Z79.899 Other long term (current) drug therapy; G47.33 Obstructive sleep apnea (adult) (pediatric); E66.01 Morbid (severe) obesity due to excess calories; Z68.41 Body mass index [BMI] 40.0-44.9, adult; Z01.812 Encounter for preprocedural laboratory examination; Z11.52 Encounter for screening for COVID-19
CPT/HCPCS: 36415; 80053; 82948; 85025; 93458; 99152; C1887; C1894; J2250; J3010; Q9967; U0002

== ENCOUNTER 2021-09-22 18:00 | Emergency (ER) | payer SELFPAY ==
[~2021-09-22] VITALS: Ht 180.3 cm; Wt 141.1 kg
[~2021-09-22 18:00] MED LIST changes: -FENTANYL CITRATE/PF 100MCG/2 ML INJ ONE; -HEPARIN SOD/SOD CHLORIDE 2,000 ML ONE; -IOPAMIDOL 370 MG/ML 100 ML INFUS..BTL INJ ONE; -MIDAZOLAM HCL 2 MG/2 ML VIAL ONE; -TAMIFLU75 MG PO; -VERAPAMIL HCL 2.5 MG/ML 2 ML VIAL ONE
[2021-09-22] MEDS ORDERED: ACETAMINOPHEN 325 MG TAB PO STA (18:42)
[2021-09-22 19:26] LABS: BASOPHILS # (AUTO) 0.1 (0.0-0.1); BASOPHILS % 0.7 % (0.0-1.0); EOSINOPHILS # (AUTO) 0.1 (0.0-0.4); EOSINOPHILS % 1.3 % (0.0-6.0); HEMATOCRIT 39.8 % (38.2-49.6); LYMPHOCYTES # (AUTO) 0.5 (1.0-3.2); LYMPHOCYTES % 7.3 % (18.0-39.1); MEAN CORPUSCULAR HEMOGLOBIN 31.3 pg (28-32); MEAN CORPUSCULAR HGB CONC 32.7 g/dL (31-35); MEAN CORPUSCULAR VOLUME 95.9 fL (81-99); MONOCYTES # (AUTO) 0.9 (0.2-0.8); NEUTROPHILS # (AUTO) 5.6 (2.1-6.9); NEUTROPHILS % 78.4 % (38.7-80.0); PLATELET COUNT 141 x10e3/uL (140-360); RED BLOOD COUNT 4.15 x10e6/uL (4.3-5.7); RED CELL DISTRIBUTION WIDTH 14.6 % (11.7-14.4)
[2021-09-22 19:39] LABS: CLARITY,URINE SL CLOUDY (CLEAR); COLOR,URINE AMBER (YELLOW); KETONES,URINE NEGATIVE (NEGATIVE); LEUKOCYTE ESTERASE ,URINE NEGATIVE (NEGATIVE); NITRITE,URINE NEGATIVE (NEGATIVE); PROTEIN,URINE DIPSTICK 1+ (NEGATIVE); URINE UROBILINOGEN 1 mg/dL (0.2 - 1)
[2021-09-22 19:44] LABS: ALBUMIN 3.6 g/dL (3.5-5.0); ALBUMIN/GLOBULIN RATIO 1.1 (0.8-2.0); ANION GAP 14.1 mmol/L (8-16); CALCIUM 8.2 mg/dL (8.4-10.2); CREATININE, SERUM 1.25 mg/dL (0.72-1.25); POTASSIUM 3.1 mmol/L (3.5-5.1)
[2021-09-22 19:50] LABS: CREATINE KINASE MB 0.5 ng/mL (0-5.0)
[2021-09-22 19:53] LABS: EPITHELIAL CELLS,URINE RARE /LPF; WBC,URINE (MAN) 0-5 /HPF (0-5)
[2021-09-22] MEDS ORDERED: TAMIFLU75 MG PO (20:21)
[2021-09-22 20:49] VITALS: BP 147/88
== END 2021-09-22 20:50 | disposition home or self-care (01) ==
LOC: ER 18:19
DX: R50.9 Fever, unspecified (principal); J10.1 Influenza due to other identified influenza virus with other respiratory manifestations; R05.9 Cough, unspecified; E87.6 Hypokalemia; E11.65 Type 2 diabetes mellitus with hyperglycemia; I10 Essential (primary) hypertension; I48.91 Unspecified atrial fibrillation; E78.5 Hyperlipidemia, unspecified; K76.9 Liver disease, unspecified; M10.9 Gout, unspecified; I25.2 Old myocardial infarction; Z20.822 Contact with and (suspected) exposure to COVID-19; R94.31 Abnormal electrocardiogram [ECG] [EKG]
CPT/HCPCS: 36415; 80053; 81001; 82550; 82553; 83880; 84484; 85025; 93005; 99284; U0002

== ENCOUNTER 2022-03-28 06:51 | Emergency (ER) | payer MEDICARE ==
[~2022-03-28] VITALS: Ht 180.3 cm; Wt 141.1 kg
[~2022-03-28 06:51] MED LIST changes: +TAMIFLU75 MG PO
== END 2022-03-28 07:35 | disposition home or self-care (01) ==
LOC: ER 06:57
DX: N50.1 Vascular disorders of male genital organs (principal); I10 Essential (primary) hypertension; E11.9 Type 2 diabetes mellitus without complications; E78.5 Hyperlipidemia, unspecified; I48.91 Unspecified atrial fibrillation; I25.10 Atherosclerotic heart disease of native coronary artery without angina pectoris; K76.9 Liver disease, unspecified; M10.9 Gout, unspecified
CPT/HCPCS: 99282

== ENCOUNTER 2022-11-06 12:44 | Inpatient (IN) | payer MEDICARE ==
[~2022-11-06] VITALS: Ht 182.9 cm; Wt 138.3 kg
[2022-11-06] VITALS (18 sets, daily range): BP systolic 107–131; BP diastolic 61–92; PULSE 31–54; RESP 9–19; TEMP 97.7; O2SAT 82–100
[2022-11-06] MEDS ORDERED: DEXTROSE 50% SYRINGE 50 ML IV ONE ×2 (13:08→13:45)
[2022-11-06] MEDS ORDERED: FAMOTIDINE 20 MG/2 ML VIAL IV STA (13:39)
[2022-11-06] MEDS ORDERED: POTASSIUM CHLORIDE 10MEQ/100ML 200 ML IV ONE (14:00)
[2022-11-06 14:08] LABS: CREATINE KINASE 229 IU/L (30-200)
[2022-11-06] MEDS ORDERED: SODIUM CHLORIDE 0.9% 1000ML 1,000 ML IV SCH (14:15)
[2022-11-06 14:21] LABS: INR 1.74; PROTHROMBIN TIME 20.8 seconds (11.9-14.5)
[2022-11-06] MEDS ORDERED: POTASSIUM CHLORIDE 10MEQ/100ML 100 ML ONE ×2 (14:23→15:36)
[2022-11-06 14:30] LABS: ALBUMIN 4.3 g/dL (3.5-5.0); ALBUMIN/GLOBULIN RATIO 1.2 (0.8-2.0); ANION GAP 18.9 mmol/L (8-16); CALCIUM 9.8 mg/dL (8.4-10.2); CREATININE, SERUM 1.87 mg/dL (0.72-1.25)
[2022-11-06 14:33] LABS: POTASSIUM 2.9 mmol/L (3.5-5.1)
[2022-11-06] MEDS ORDERED: ONDANSETRON HCL INJ 2MG/ML 2ML 2 MG/ML VIAL IV PRN ×2 (14:45→17:00)
[2022-11-06] MEDS ORDERED: SODIUM CHLORIDE FLUSH 10 ML SYR INJ PRN (14:45)
[2022-11-06] MEDS ORDERED: DEXTROSE 50% SYRINGE 50 ML IV PRN ×2 (15:00→17:00)
[2022-11-06] MEDS ORDERED: CEFTRIAXONE 1 GM VIAL ONE (15:10)
[2022-11-06] MEDS ORDERED: WARFARIN SODIUM5 MG PO (16:48)
[2022-11-06] MEDS ORDERED: MORPHINE SULFAT30 M2 PO (16:51)
[2022-11-06] MEDS ORDERED: ASPIRIN81 MG PO (16:55)
[2022-11-06] MEDS ORDERED: COL-RITE250 MG PO (16:58)
[2022-11-06] MEDS ORDERED: RESTORIL15 MG PO (16:58)
[2022-11-06] MEDS ORDERED: ZOLPIDEM TARTRATE 5 MG TAB PO PRN (17:00)
[2022-11-06] MEDS ORDERED: ALLOPURINOL 300 MG TAB PO SCH (17:00)
[2022-11-06] MEDS ORDERED: HYDRALAZINE HCL 20 MG/ML VIAL IV PRN (17:00)
[2022-11-06] MEDS ORDERED: SODIUM CHLORIDE 0.9% 250ML 250 ML ONE (17:08)
[2022-11-06] MEDS: TIZANIDINE HCL 4 MG TAB PO SCH (17:49)
[2022-11-06] MEDS: INSULIN REGULAR, HUMAN 100 UNIT/1 ML SQ SCH (20:41)
[2022-11-06] MEDS ORDERED: ACETAMINOPHEN 325 MG TAB PO PRN (22:00)
[2022-11-06] MEDS: MORPHINE SULFATE ER 30 MG TAB PO SCH (22:21)
[2022-11-06] MEDS: TEMAZEPAM 15 MG CAP PO PRN (22:22)
[2022-11-07] VITALS (24 sets, daily range): BP systolic 106–155; BP diastolic 61–115; PULSE 36–69; RESP 12–19; TEMP 97.8–98.3; O2SAT 95–100
[2022-11-07 06:47] LABS: BASOPHILS # (AUTO) 0.1 (0.0-0.1); BASOPHILS % 1.2 % (0.0-1.0); EOSINOPHILS # (AUTO) 0.4 (0.0-0.4); EOSINOPHILS % 7.5 % (0.0-6.0); HEMATOCRIT 37.3 % (38.2-49.6); HEMOGLOBIN 12.3 g/dL (14.0-18.0); LYMPHOCYTES # (AUTO) 1.8 (1.0-3.2); LYMPHOCYTES % 30.9 % (18.0-39.1); MEAN CORPUSCULAR HEMOGLOBIN 32.1 pg (28-32); MEAN CORPUSCULAR VOLUME 97.4 fL (81-99); MONOCYTES # (AUTO) 0.5 (0.2-0.8); MONOCYTES % 8.1 % (4.4-11.3); NEUTROPHILS % 52.1 % (38.7-80.0); PLATELET COUNT 126 x10e3/uL (140-360); RED BLOOD COUNT 3.83 x10e6/uL (4.3-5.7); RED CELL DISTRIBUTION WIDTH 14.8 % (11.7-14.4)
[2022-11-07 06:56] LABS: INR 2.04; PROTHROMBIN TIME 23.5 seconds (11.9-14.5)
[2022-11-07 07:08] LABS: ALBUMIN 3.5 g/dL (3.5-5.0); ALBUMIN/GLOBULIN RATIO 1.3 (0.8-2.0); ANION GAP 13.9 mmol/L (8-16); CALCIUM 8.8 mg/dL (8.4-10.2); CREATININE, SERUM 1.19 mg/dL (0.72-1.25)
[2022-11-07 07:12] LABS: POTASSIUM 2.9 mmol/L (3.5-5.1)
[2022-11-07] MEDS: INSULIN REGULAR, HUMAN 100 UNIT/1 ML SQ SCH ×4 (07:30→21:00)
[2022-11-07] MEDS: MULTIVITAMINS/MINERALS TAB PO SCH (07:57)
[2022-11-07] MEDS: TIZANIDINE HCL 4 MG TAB PO SCH ×2 (07:57→17:09)
[2022-11-07] MEDS: PANTOPRAZOLE SOD 40 MG TABEC PO SCH (07:57)
[2022-11-07] MEDS: BENAZEPRIL HCL 10 MG TAB PO SCH (07:58)
[2022-11-07] MEDS: MORPHINE SULFATE ER 30 MG TAB PO SCH ×2 (07:58→22:02)
[2022-11-07] MEDS: ALLOPURINOL 300 MG TAB PO SCH (07:59)
[2022-11-07] MEDS ORDERED: POTASSIUM CHLORIDE 20 MEQ TAB CR PO ONE ×2 (08:00→17:00)
[2022-11-07] MEDS ORDERED: WARFARIN SOD 5 MG TAB PO SCH (17:00)
[2022-11-07] MEDS: TEMAZEPAM 15 MG CAP PO PRN (22:02)
[2022-11-08] VITALS (9 sets, daily range): BP systolic 127–147; BP diastolic 65–91; PULSE 39–70; RESP 12–18; TEMP 97.7; O2SAT 97–100
[2022-11-08 07:00] LABS: BASOPHILS # (AUTO) 0.1 (0.0-0.1); BASOPHILS % 0.8 % (0.0-1.0); EOSINOPHILS # (AUTO) 0.4 (0.0-0.4); EOSINOPHILS % 6.9 % (0.0-6.0); HEMATOCRIT 39.4 % (38.2-49.6); HEMOGLOBIN 13.4 g/dL (14.0-18.0); LYMPHOCYTES # (AUTO) 1.7 (1.0-3.2); LYMPHOCYTES % 26.6 % (18.0-39.1); MONOCYTES # (AUTO) 0.4 (0.2-0.8); NEUTROPHILS # (AUTO) 3.7 (2.1-6.9); NEUTROPHILS % 58.4 % (38.7-80.0); PLATELET COUNT 142 x10e3/uL (140-360); RED BLOOD COUNT 4.19 x10e6/uL (4.3-5.7); RED CELL DISTRIBUTION WIDTH 14.9 % (11.7-14.4)
[2022-11-08 07:26] LABS: ALBUMIN 3.7 g/dL (3.5-5.0); ALBUMIN/GLOBULIN RATIO 1.2 (0.8-2.0); ANION GAP 14.7 mmol/L (8-16); CALCIUM 9.1 mg/dL (8.4-10.2); CREATININE, SERUM 1.09 mg/dL (0.72-1.25); POTASSIUM 3.7 mmol/L (3.5-5.1)
[2022-11-08] MEDS: INSULIN REGULAR, HUMAN 100 UNIT/1 ML SQ SCH (07:30)
[2022-11-08] MEDS: PANTOPRAZOLE SOD 40 MG TABEC PO SCH (08:48)
[2022-11-08] MEDS: BENAZEPRIL HCL 10 MG TAB PO SCH (08:48)
[2022-11-08] MEDS: MORPHINE SULFATE ER 30 MG TAB PO SCH (08:48)
[2022-11-08] MEDS: MULTIVITAMINS/MINERALS TAB PO SCH (08:49)
[2022-11-08] MEDS: ALLOPURINOL 300 MG TAB PO SCH (08:49)
[2022-11-08] MEDS: TIZANIDINE HCL 4 MG TAB PO SCH (08:49)
[2022-11-08] MEDS ORDERED: POTASSIUM CHLORIDE 20 MEQ TAB CR PO SCH (09:00)
== END 2022-11-08 11:45 | disposition home or self-care (01) | DRG 309 ==
LOC: FSED 12:53 → ERHOLD 14:48 → ICU 16:24
PROVIDERS: ADMIT Internal Medicine; ATTEND Internal Medicine
DX: R00.1 Bradycardia, unspecified (principal); I50.32 Chronic diastolic (congestive) heart failure; N17.9 Acute kidney failure, unspecified; Z68.41 Body mass index [BMI] 40.0-44.9, adult; I95.9 Hypotension, unspecified; T46.5X5A Adverse effect of other antihypertensive drugs, initial encounter; E87.6 Hypokalemia; T44.7X5A Adverse effect of beta-adrenoreceptor antagonists, initial encounter; M10.9 Gout, unspecified; E66.9 Obesity, unspecified; K21.9 Gastro-esophageal reflux disease without esophagitis; I11.0 Hypertensive heart disease with heart failure; G47.33 Obstructive sleep apnea (adult) (pediatric); Y92.9 Unspecified place or not applicable; I48.0 Paroxysmal atrial fibrillation; R60.0 Localized edema; I25.10 Atherosclerotic heart disease of native coronary artery without angina pectoris; K76.9 Liver disease, unspecified; E78.5 Hyperlipidemia, unspecified; E11.649 Type 2 diabetes mellitus with hypoglycemia without coma; R53.1 Weakness; Z98.84 Bariatric surgery status; Z88.5 Allergy status to narcotic agent; Z79.01 Long term (current) use of anticoagulants; Z79.82 Long term (current) use of aspirin; Z79.899 Other long term (current) drug therapy; Z79.84 Long term (current) use of oral hypoglycemic drugs; Z82.49 Family history of ischemic heart disease and other diseases of the circulatory system; Z83.3 Family history of diabetes mellitus; Z20.822 Contact with and (suspected) exposure to COVID-19
CPT/HCPCS: 0223U; 36415; 71045; 80053; 81003; 82550; 82948; 83605; 83735; 83880; 84484; 85025; 85610; 85730; 87040; 93005; 93306; 94660; 94799; 99284; J0696; J3480; J7050; J7799